=== PATIENT | female | born 1945 | race Caucasian/White ===

== ENCOUNTER 2016-09-30 12:20 | Day surgery (SDC) | payer MEDICARE ==
[~2016-09-30] VITALS: Ht 160 cm; Wt 95.0 kg
[~2016-09-30 12:20] MED LIST: 0.9% Sodium Chloride 1,000 ML IV SCH; ASHWAGANDHA PO; ASPI325T32 PO; CELADRIN PO; HAWT150C PO; HEALTH PO; MULT-1018 PO; OMEG-38 PO; QUER1POW MC; Sodium Chloride LOK Flush 10 mL Syringe IV PRN; TURM1POW MC; VITA1CAP16 PO; fentaNYL-PF 50 mCg/mL 2 mL Inj IVPUSH PRN
[2016-09-30 13:09] VITALS: BP 130/73; PULSE 61; RESP 20; O2SAT 97
--- NOTE | 2016-09-30 14:24 | PCM.ENDCOL ---
Colonoscopy Date of Service: September 30, 2016 Physician Roger Perez MD Pre Procedure Diagnosis: Screening Post Procedure Dx & Findings: Hemorrhoids diverticuliti Procedure Colonoscopy PROCEDURE IN DETAIL: Prep fair Withdrawal time 11 minutes After unremarkable rectal examination the Olympus video colonoscope was inserted patient's anal canal and was advanced to cecum. Landmarks were identified including the ileocecal valve and appendiceal orifice. Scope was withdrawn systematically. Visualized colonic mucosa showed healthy shiny mucosa with normal healthy-appearing vasculature. In the sigmoid colon, there were medium to large several diverticuli. In the rectum retroflexion was done which showed hemorrhoids. Anal canal was inspected carefully on the way out and hemorrhoids noted. Impression Diverticuli Fair prep Hemorrhoids Recommendation Repeat colonoscopy 1 year with 3 days of clears Diverticular diet Presedation Assessment Risks and Benefits Informed consent was obtained from the patient after all risks and benefits including but not limited to drug reaction, infection, pain, bleeding, perforation, as well as alternatives were discussed. Patient monitoring Continuous pulse oximetry, cardiac monitoring, blood pressure monitoring, IV access, and oxygen at 2L per nasal cannula. Periprocedural Fentanyl: Fentanyl 75mcg Incrementally Midazolam: Midazolam 3mg Incrementally Complications There were no periprocedural complications identified. Post Procedure Plan Post Procedure Recommendations 1. Restrict activities today. 2. Resume normal activities in the morning. 3. Resume medications. 4. Patient informed of normal post procedure side effects as bloating, drowsiness, blood streaking in the stool. 5. average risk CRCS. If colon polyps come back as: -Hyperplastic- can repeat colonoscopy in 10 years -Tubular adenoma- repeat colonoscopy in 5 years -Tubulovillous/villous adenoma- repeat colonoscopy in 3 years -If any dysplasia- return to clinic as soon as possible 6. Please don't hesitate to call me with any questions. Roger Perez MD September 30, 2016 14:24
[2016-09-30 14:26] VITALS: BP 121/73; PULSE 67; RESP 16; O2SAT 97
[2016-09-30 14:36] VITALS: BP 109/67; PULSE 58; RESP 16; O2SAT 98
[2016-09-30 14:45] VITALS: BP 116/66; PULSE 66; RESP 16; O2SAT 97
== END 2016-09-30 23:59 | disposition home or self-care (01) ==
LOC: END 12:20
PROVIDERS: ATTEND Internal Medicine
DX: Z12.11 Encounter for screening for malignant neoplasm of colon (principal); K57.30 Diverticulosis of large intestine without perforation or abscess without bleeding; K64.8 Other hemorrhoids; Z83.71 Family history of colonic polyps; E78.5 Hyperlipidemia, unspecified; G62.9 Polyneuropathy, unspecified; Z87.891 Personal history of nicotine dependence; Z79.82 Long term (current) use of aspirin
CPT/HCPCS: 99153; G0105; G0500; J2250; J3010; J7030